=== PATIENT | female | born 1955 | race Caucasian/White ===

== ENCOUNTER 2018-01-16 00:38 | Emergency (ER) | payer OTHER ==
[~2018-01-16] VITALS: Ht 152.4 cm; Wt 81.6 kg
--- NOTE | 2018-01-16 01:05 | NUR ---
pt aox4, comes in with c/o RLE swelling and pain x3 days. pt in no respiratory distress. VSS. US called per ER MD. pt in no acute distress, resting in bed. able to speak in clear and complete sentences and make needs known.
--- NOTE | 2018-01-16 01:45 | NUR ---
US at bedside
== END 2018-01-16 02:25 | disposition home or self-care (01) ==
LOC: ER 00:44
DX: M54.31 Sciatica, right side (principal)
CPT/HCPCS: A4663